=== PATIENT | male | born 1950 | race Caucasian/White ===

== ENCOUNTER → 2016-09-16 | Day surgery (SDC) | payer OTHER ==
[~2016-09-16] VITALS: Ht 172.7 cm; Wt 81.2 kg
[~2016-09-16] MED LIST: ACETAMINOPHEN/HYDROcodone 325 MG/5 MG TAB PO PRN; BUPIVACAINE HCL PF 0.5% 30 ML VIAL ONE; CEPH-460 PO; CHLORHEXIDINE GLUCONATE 2 % 1 PACK (2 CLOTHS) TOPICAL PRN; DO NOT ADM ANY ANTICOAGULANT DRUGS PRN; DOXY100C PO; FAMOTIDINE 20 MG/2 ML VIAL ONE; INSULIN HUMAN REGULAR 1,000 UNITS/10 ML VIAL SQ PRN; LACTATED RINGER'S 1000 ML IV PRN; LIDOCAINE HCL 2% 50 ML VIAL ONE; LOTR5CAP3 PO; MEPERIDINE HCL 50 MG/ML VIAL IM PRN; METOPROLOL TARTRATE 25 MG TAB PO PRN; MIDAZOLAM HCL 2 MG/2 ML VIAL ONE; NEOMYCIN/POLYMYXIN 1 ML G.U. IRRIGANT TOPICAL ONE; NORC5TAB PO; OMEP20TA PO; POVIDONE IODINE 5% (ANTISEPSIS KIT) 4 APPLICATIONS EACH NARE PRN; PROPOFOL 200 MG/20 ML AMP IV ONE; SODIUM CHLORID 0.9% 500 ML IV PRN; ceFAZolin 1,000 MG/NS 100 ML IV SCH
[2016-09-16 08:08] VITALS: BP 137/72; PULSE 58; RESP 16; TEMP 97.9; O2SAT 100
[2016-09-16 08:17] LABS: AUTOMATED NEUTROPHIL # 3.7 TH/MM3 (1.8-7.7); BASOPHIL % 0.8 % (0.0-2.0); EOSINOPHIL # 0.1 TH/MM3 (0-0.4); EOSINOPHIL % 1.2 % (0.0-4.0); HEMATOCRIT 44.1 % (39.0-51.0); HEMO FLAGS DIFF FINAL; LYMPH % 31.4 % (9.0-44.0); LYMPHOCYTE # 1.9 TH/MM3 (1.0-4.8); MEAN CELL VOLUME 91.2 FL (80.0-100.0); MEAN CORPUSCULAR HEMOGLOBIN 30.7 PG (27.0-34.0); MEAN CORPUSCULAR HGB CONC 33.6 % (32.0-36.0); MONO % 7.4 % (0.0-8.0); NEUT % 59.2 % (16.0-70.0); PLATELET COUNT 223 TH/MM3 (150-450); RED BLOOD COUNT 4.84 MIL/MM3 (4.50-5.90); RED CELL DISTRIBUTION WIDTH 13.7 % (11.6-17.2); WHITE BLOOD COUNT 6.2 TH/MM3 (4.0-11.0)
[2016-09-16 10:54] VITALS: BP 115/59; PULSE 46; RESP 16; TEMP 97.4; O2SAT 100
--- NOTE | 2016-09-16 22:58 | EKG ---
Date Performed: 09/16/2016 Time Performed: 07:57:29 PTAGE: 66 years EKG: SINUS BRADYCARDIA WITH SINUS ARRHYTHMIA WITH FIRST DEGREE AV BLOCK MARKED LEFT AXIS DEVIATI ON MODERATE INTRAVENTRICULAR CONDUCTION DELAY ABNORMAL ECG NO PREVIOUS TRACING DOCTOR: Alonso Allison Interpretating Date/Time 09/16/2016 22:57:25
--- NOTE | 2016-09-17 20:51 | MP ---
cc: WAYNE BARRY MD DATE OF SURGERY 09/16/16 PREOPERATIVE DIAGNOSIS Right third and fifth trigger fingers POSTOPERATIVE DIAGNOSIS 1. Right third and fifth trigger fingers 2. 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 Incisions were made over the third and fifth A1 pulleys individually. Blunt dissection through the incision over the fifth A1 maik was made and carried down through skin and subcutaneous tissue. The A1 maik is identified, but there is a significant amount of inflammation. It was incised. Hypertrophic synovium was excised that was superficial to the tendon. The flexor tendons were then examined and found to have been chronically ruptured and were tender to their proximal ends by scar tissue. They moved individually. Tunneling into the palm did not reveal the proximal end of the tendons, but they were in continuity with the scar tissue. Thorough irrigation with saline was performed and the skin edges reapproximated using running 4-0 nylon suture. Blunt dissection over the third A1 maik was performed. The A1 maik was easily identified and incised at its midline from its proximal most to its distal-most extent completely freeing the flexor tendons. The flexor tendons were examined and found to be in continuity and in good condition. Thorough irrigation with saline was performed. The skin edges were reapproximated using running 4-0 nylon sutures. The hand and arm were thoroughly cleansed and dried. Betadine Adaptic dressings was applied followed by a bulky soft dressing. The axillary tourniquet was released. The hand and all the fingers became immediately soft, pink, warm and had brisk capillary refill of less than 2 seconds. The patient was awakened from anesthesia and transported to Post Anesthesia Care Unit awake in stable condition at the end of the case. Sponge, needle, instrument counts were correct at the end of the case as reported by nurses in the room. Wayne MD LAURA Araiza III /9:57 AM /8:46 PM
== END | disposition home or self-care (01) ==
LOC: HSDC 07:34
PROVIDERS: ATTEND Orthopaedic Surgery Hand Surgery
DX: M65.331 Trigger finger, right middle finger (principal); M65.351 Trigger finger, right little finger; I10 Essential (primary) hypertension; Z01.818 Encounter for other preprocedural examination; Z01.810 Encounter for preprocedural cardiovascular examination
CPT/HCPCS: 01810; 26055; 85025; 93005; J0690; J2250; J3010; J7120